=== PATIENT | male | born 1980 | race Hispanic/Latino ===

== ENCOUNTER 2017-11-14 10:33 | Emergency (ER) | payer BC ==
[~2017-11-14] VITALS: Ht 177.8 cm; Wt 88.5 kg
[2017-11-14] MEDS ORDERED: AMBIEN5 MG PO (10:55)
[2017-11-14] MEDS ORDERED: ATIVAN2 MG (10:56)
[2017-11-14] MEDS ORDERED: GABAPENTIN300 MG PO (10:57)
[2017-11-14] MEDS ORDERED: ADDERALL 30 MG30 MG (10:57)
[2017-11-14] MEDS ORDERED: KETOROLAC TROMETHAMINE 30 MG/ML VIAL IM ONE (11:30)
[2017-11-14] MEDS ORDERED: ROBAXIN-750750 MG PO (12:12)
[2017-11-14] MEDS ORDERED: PEPCID20 MG PO (12:12)
[2017-11-14] MEDS ORDERED: MELOXICAM7.5 MG PO (12:12)
[2017-11-14 12:24] VITALS: BP 126/78
== END 2017-11-14 12:20 | disposition home or self-care (01) ==
LOC: FSED 10:33
DX: G89.11 Acute pain due to trauma (principal); M54.2 Cervicalgia; R20.0 Anesthesia of skin; R51 Headache; M54.6 Pain in thoracic spine; V43.52XA Car driver injured in collision with other type car in traffic accident, initial encounter; Y92.488 Other paved roadways as the place of occurrence of the external cause; F41.9 Anxiety disorder, unspecified
CPT/HCPCS: 72125; 99283; J1885